=== PATIENT | male | born 1955 | race Caucasian/White ===

== ENCOUNTER → 2019-05-27 | Outpatient (CLI) | payer BC ==
[~2019-05-27] MED LIST: methylPREDNISolone SOD SUCC 1,000 MG in IV NORMAL SALINE 100ML 100 ML IV ONE
[2019-05-27 10:48] VITALS: BP 129/84
--- NOTE | 2019-05-27 13:10 | NUR ---
Pt ambulated to RM 122. VSS. NAD. Denies pain. Pt is pleasant, alert, oriented. 22 gauge PIV started with one attempt to L forearm. Infusion initiated and completed without complications. Pt ambulated off unit, all belongings accounted for.
== END | disposition home or self-care (01) ==
LOC: OPINF 10:26
DX: G35 Multiple sclerosis (principal); Z79.52 Long term (current) use of systemic steroids
CPT/HCPCS: 96365; 96366; J2930; 96367

== ENCOUNTER 2019-09-02 17:37 | Emergency (ER) | payer BC ==
[~2019-09-02] VITALS: Ht 180.3 cm; Wt 80.0 kg
[2019-09-02 17:56] VITALS: BP 143/69
[2019-09-02] MEDS ORDERED: DIAZ5TAB PO (18:31)
--- NOTE | 2019-09-02 18:32 | PHYS DOC ---
Past History Past Medical History: Other Additional Past Medical Histor: MS Past Surgical History: No Surgical History Alcohol Use: None General Adult EDM: Chief Complaint: MECHANICAL FALL HPI: HPI: 63-year-old male presents after fall at home. Patient has multiple sclerosis. He sometimes has balance issues. He fell straight onto his rear end today. He now has some pain in the low back and can feel that he is having lumbar spasm. He has had this a couple times in the past when he has done too much and strained himself. If he can just get the spasms to let up he usually improves quickly over a couple of days. He denies any numbness, tingling, altered sensation. He denies any other injuries or complaints at this time. Review of Systems: Review of Systems: Constitutional: Denies fever or chills Eyes: Denies change in visual acuity HENT: Denies nasal congestion or sore throat Respiratory: Denies cough or shortness of breath Cardiovascular: Denies chest pain or edema GI: Denies abdominal pain, nausea, vomiting, bloody stools or diarrhea : Denies dysuria Musculoskeletal: Lumbar back pain Integument: Denies rash Neurologic: Denies headache, focal weakness or sensory changes Endocrine: Denies polyuria or polydipsia Lymphatic: Denies swollen glands Psychiatric: Denies depression or anxiety Heart Score: Risk Factors: Risk Factors: DM, Current or recent (<one month) smoker, HTN, HLP, family history of CAD, obesity. Risk Scores: Score 0 - 3: 2.5% MACE over next 6 weeks - Discharge Home Score 4 - 6: 20.3% MACE over next 6 weeks - Admit for Clinical Observation Score 7 - 10: 72.7% MACE over next 6 weeks - Early Invasive Strategies Allergies: Allergies: Allergies Coded Allergies Type Severity Reaction Last Updated Verified Penicillins Allergy Unknown 03/09/19 Yes Physical Exam: PE: Constitutional: Well developed, well nourished, no acute distress, non-toxic appearance. [] HENT: Normocephalic, atraumatic, bilateral external ears normal, oropharynx moist, no oral exudates, nose normal. [] Eyes: PERRLA, EOMI, conjunctiva normal, no discharge. [] Neck: Normal range of motion, no tenderness, supple, no stridor. [] Cardiovascular:Heart rate regular rhythm, no murmur [] Lungs & Thorax: Bilateral breath sounds clear to auscultation [] Abdomen: Bowel sounds normal, soft, no tenderness, no masses, no pulsatile masses. [] Skin: Warm, dry, no erythema, no rash. [] Back: Lumbar paraspinal muscle spasm bilaterally. [] Extremities: No tenderness, no cyanosis, no clubbing, ROM intact, no edema. [] Neurologic: Alert and oriented X 3, normal motor function, normal sensory function, no focal deficits noted. [] Psychologic: Affect normal, judgement normal, mood normal. [] Current Patient Data: Vital Signs: Vital Signs Date Time Temp Pulse Resp B/P (MAP) Pulse Ox O2 Delivery O2 Flow Rate FiO2 09/02/19 17:56 98.2 64 16 143/69 (93) 98 Room Air EKG: EKG: [] Radiology/Procedures: Radiology/Procedures: [] Course & Med Decision Making: Course & Med Decision Making Pertinent Labs and Imaging studies reviewed. (See chart for details) The patient is having acute muscle spasms. I will treat him with Valium orally for couple of days. He will also ice the area at home. He will stay home in case the medication makes him sleepy. He is stable for discharge at this time. [] Dragon Disclaimer: Dragon Disclaimer: This electronic medical record was generated, in whole or in part, using a voice recognition dictation system. Departure Departure: Impression: Primary Impression: Lumbar paraspinal muscle spasm Disposition: 01 HOME/RESIDENCE PRIOR TO ADM Condition: STABLE Referrals: AXEL PARTIDA MD (PCP) Patient Instructions: Low Back Strain with [facility]hab[facility] Scripts Diazepam (VALIUM) 5 Mg Tablet 5 MG PO BID PRN for MUSCLE SPASMS for 3 Days, #6 TAB Prov: JAN KEANE DO 09/02/19 JAN KEANE DO September 02, 2019 18:32
== END 2019-09-02 18:49 | disposition home or self-care (01) ==
LOC: ER 17:37
DX: M62.830 Muscle spasm of back (principal); G35 Multiple sclerosis; Z88.0 Allergy status to penicillin; W18.39XA Other fall on same level, initial encounter; Y93.89 Activity, other specified; Y92.098 Other place in other non-institutional residence as the place of occurrence of the external cause; Y99.8 Other external cause status
CPT/HCPCS: 99283

== ENCOUNTER → 2020-01-23 | Outpatient (CLI) | payer MEDICARE ==
[~2020-01-23] MED LIST changes: +DIAZ5TAB PO; -methylPREDNISolone SOD SUCC 1,000 MG in IV NORMAL SALINE 100ML 100 ML IV ONE
[2020-01-23 10:30] VITALS: BP 133/87
[2020-01-23] MEDS: methylPREDNISolone SOD SUCC 1,000 MG in IV NORMAL SALINE 100ML 100 ML IV ONE (11:31)
[2020-01-23 11:38] LABS: BASO # 0.1 x10^3/uL (0.0-0.2); BASO % 1 % (0-3); EOS # 0.4 x10^3/uL (0.0-0.7); EOS % 5 % (0-3); HEMATOCRIT 43.4 % (39.0-53.0); HEMOGLOBIN 14.7 g/dL (13.0-17.5); LYMPH # 2.1 x10^3/uL (1.0-4.8); LYMPH % 30 % (24-48); MEAN CORPUSCULAR HEMOGLOBIN 32 pg (25-35); MEAN CORPUSCULAR HGB CONC 34 g/dL (31-37); MEAN CORPUSCULAR VOLUME 95 fL (79-100); MONO # 0.6 x10^3/uL (0.0-1.1); MONO % 9 % (0-9); NEUT # 3.9 x10^3uL (1.8-7.7); NEUT % 55 % (31-73); PLATELET COUNT 234 x10^3/uL (140-400); RED BLOOD COUNT 4.55 x10^6/uL (4.30-5.70); RED CELL DISTRIBUTION WIDTH 13.4 % (11.5-14.5); WHITE BLOOD COUNT 7.1 x10^3/uL (4.0-11.0)
[2020-01-23 11:40] LABS: ALBUMIN 3.7 g/dL (3.4-5.0); ALBUMIN/GLOBULIN RATIO 1.1 (1.0-1.7); CALCIUM 9.5 mg/dL (8.5-10.1); POTASSIUM 3.9 mmol/L (3.5-5.1); TOTAL BILIRUBIN 0.4 mg/dL (0.2-1.0); TOTAL PROTEIN 7.2 g/dL (6.4-8.2)
== END | disposition home health service (06) ==
LOC: OPINF 10:06
DX: G35 Multiple sclerosis (principal); M62.830 Muscle spasm of back; Z79.52 Long term (current) use of systemic steroids
CPT/HCPCS: 36415; 80053; 82306; 85025; 96365; J2930; 36592